=== PATIENT | male | born 1995 | race Caucasian/White ===

== ENCOUNTER 2016-09-24 18:45 | Emergency (ER) | payer SELFPAY ==
[~2016-09-24] VITALS: Ht 180.3 cm; Wt 70.4 kg
[2016-09-24] MEDS ORDERED: NARCAN4 MG NS (20:37)
[2016-09-24 20:59] VITALS: BP 127/83
== END 2016-09-24 20:59 | disposition home or self-care (01) ==
LOC: EME 18:45
DX: T40.1X1A Poisoning by heroin, accidental (unintentional), initial encounter (principal); F17.200 Nicotine dependence, unspecified, uncomplicated
CPT/HCPCS: 99281; 99284; J2310